=== PATIENT | male | born 1960 | race Caucasian/White ===

== ENCOUNTER → 2020-12-08 08:54 | Outpatient (CLI) | payer BC ==
--- NOTE | 2020-12-10 08:06 | ST ---
PATIENT:LIZZ GASPAR MEDICAL RECORD: [id number] SEX: M LOCATION:[facility] ORDER #: ADMISSION DATE: 12/08/20 AGE OF PATIENT: 60 REFERRING PHYSICIAN: INTERPRETING PHYSICIAN: TERESA ALVARADO MD DATE OF SERVICE: 12/08/2020 NUCLEAR STRESS TEST GATED: Gated is normal with normal wall motion. Normal wall thickening. Calculated EF 69%. SPECT IMAGING: SPECT imaging was performed. 1. Short axis view: Short axis view shows good uptake along the anterior wall, lateral wall, and inferior wall. 2. Horizontal axis: Horizontal axis confirms good uptake along the anterior wall and inferior wall. 3. Vertical axis: Vertical axis confirms good uptake along the lateral wall and septum. FINAL IMPRESSION: 1. Normal gated, normal wall motion, normal EF 69%. 2. Normal SPECT imaging. This scan is felt to be at low risk for any ongoing myocardial ischemia or previous myocardial infarction. LV function remains normal. TRANSINT:[id number] Voice Confirmation ID: [id number] DOCUMENT ID: [id number] TERESA ALVARADO MD at [id number] CC: [id number] DICTATION DATE: 12/08/20 1638 [employer]IEF [employer] DEPARTMENT: 12/09/20 0538 DEP CLI 12/08/20 [id number] [place] [id number]
== END | disposition home or self-care (01) ==
LOC: D.HCCARDIO 08:54
PROVIDERS: ATTEND Internal Medicine Interventional Cardiology
DX: I25.10 Atherosclerotic heart disease of native coronary artery without angina pectoris (principal)